=== PATIENT | male | born 1980 | race African-American/Black ===

== ENCOUNTER 2017-01-11 08:37 | Emergency (ER) | payer MEDICAID ==
[~2017-01-11] VITALS: Ht 177.8 cm; Wt 102.9 kg
[2017-01-11] MEDS ORDERED: ACETAMINOPHEN 325MG TABLET PO ONE (09:15)
[2017-01-11 10:02] VITALS: BP 128/74
== END 2017-01-11 10:03 | disposition home or self-care (01) ==
LOC: ER 08:57
DX: L03.012 Cellulitis of left finger (principal); E11.9 Type 2 diabetes mellitus without complications; F12.10 Cannabis abuse, uncomplicated
CPT/HCPCS: 10060; 99283; X7700; Z7610

== ENCOUNTER 2017-09-23 10:32 | Emergency (ER) | payer MEDICAID ==
[~2017-09-23] VITALS: Ht 180.3 cm; Wt 101.0 kg
[2017-09-23] MEDS ORDERED: METF500T6 PO (11:01)
[2017-09-23] MEDS ORDERED: LANTUS (11:01)
[2017-09-23] MEDS ORDERED: SODIUM CHLORIDE 0.9% 1,000 ML IV ONE (18:15)
[2017-09-23 18:44] LABS: BASOPHILS % 0.7 % (0.0-2.0); EOSINOPHILS % 0.3 % (0.0-5.0); HEMATOCRIT. 42.2 % (42.0-52.0); HEMOGLOBIN. 13.7 g/dL (14.0-18.0); LYMPHOCYTES % 46.8 % (20.0-50.0); MEAN CORPUSCULAR HEMOGLOBIN 26.2 pg (28.0-32.0); MEAN CORPUSCULAR VOLUME 80.8 fL (80.0-94.0); MEAN PLATELET VOLUME 9.6 fl (7.4-10.4); MONOCYTES % 7.6 % (2.0-8.0); NEUTROPHILS % 44.6 % (40.0-76.0); PLATELET 199 x1000/uL (130-400); RED BLOOD CELL COUNT 5.23 mill/uL (4.7-6.1); RED CELL DISTRIBUTION WIDTH 14.8 % (11.6-14.6)
[2017-09-23 18:46] LABS: CHLORIDE 105 mEq/L (98-107)
[2017-09-23 18:47] LABS: PROTHROMBIN TIME 10.5 sec (9.4-11.6)
[2017-09-23 19:35] LABS: CLARITY URINE CLEAR (CLEAR); COLOR URINE YELLOW (YELLOW); KETONES URINE 2+ (NEGATIVE); LEUKOCYTE ESTERASE URINE NEGATIVE (NEGATIVE); NITRITE URINE NEGATIVE (NEGATIVE); OCCULT BLOOD URINE NEGATIVE (NEGATIVE); PROTEIN URINE NEGATIVE (NEGATIVE); SPECIFIC GRAVITY URINE 1.023 (1.005-1.030); UROBILINOGEN URINE 0.2 E.U./dL (0.2-1.0)
[2017-09-23 20:16] LABS: *AMPHETAMINES SCREEN URINE NEGATIVE (NEGATIVE); *BARBITURATES SCREEN URINE NEGATIVE (NEGATIVE); *BENZODIAZEPINES SCREEN URINE NEGATIVE (NEGATIVE); *COCAINE SCREEN URINE NEGATIVE (NEGATIVE); METHADONE URINE SCREEN NEGATIVE (NEGATIVE); OPIATES URINE SCREEN NEGATIVE (NEGATIVE); PHENCYCLIDINE URINE SCREEN NEGATIVE (NEGATIVE)
[2017-09-23 20:17] LABS: CANNABINOID URINE SCREEN PRESUMTIVE POSITIVE (NEGATIVE)
[2017-09-24 01:48] VITALS: BP 121/75
== END 2017-09-24 01:52 | disposition home or self-care (01) ==
LOC: ER 10:32
DX: R10.9 Unspecified abdominal pain (principal); E11.65 Type 2 diabetes mellitus with hyperglycemia; E11.43 Type 2 diabetes mellitus with diabetic autonomic (poly)neuropathy; E11.21 Type 2 diabetes mellitus with diabetic nephropathy; K31.84 Gastroparesis; F12.188 Cannabis abuse with other cannabis-induced disorder; R82.4 Acetonuria; K21.9 Gastro-esophageal reflux disease without esophagitis; E66.9 Obesity, unspecified; R00.1 Bradycardia, unspecified; E86.0 Dehydration; Z79.4 Long term (current) use of insulin
CPT/HCPCS: 36415; 71045; 74176; 80053; 80305; 81003; 83036; 83880; 84484; 85025; 85610; 93005; 96360; 99285; J7030; Z7610